=== PATIENT | female | born 1940 | race Two or more races ===

== ENCOUNTER 2017-03-21 21:54 | Emergency (ER) | payer OTHER ==
[~2017-03-21] VITALS: Ht 149.9 cm; Wt 50.1 kg
[2017-03-21 21:56] VITALS: BP 154/83
--- NOTE | 2017-03-21 22:06 | NUR ---
PT TAKEN TO BED 2.
--- NOTE | 2017-03-21 22:07 | NUR ---
Patient being evaluated by Dr. Huff at bedside.
[2017-03-21] MEDS ORDERED: LIDOCAINE 1% ***ER ONLY *** 10 MG/ML VIAL INJ ONE (22:10)
[2017-03-21] MEDS ORDERED: LIDOCAINE 1% ***ER ONLY *** 50 ML ONE (22:19)
--- NOTE | 2017-03-21 22:22 | NUR ---
77/F BIB FAMILY C/O LACERATION TO RT FOREHEAD. PMH ALZHEIMERS, DEMENTIA, THRYROID DZ. PT STATES SHE WAS WALKING TO BED WITH A ICECREAM IN HER HAND WITH OUT ANY SUPPORT AND TRIPPED OVER A RUG AND HIT HER HEAD ON THE WALL. PT DENIES LOC, N/V/D, FEVER, OR PAIN AT THIS TIME. PT HAS 3CM LACERATION TO RT SIDE OF FOREHEAD ABOVE EYEBROW. NO ACTIVE BLEEDING NOTED AT THIS TIME. PT IS AA&O X4 AND ACTING APPROPRIATE FOR AGE. PER DAUGHTER PT IS ACTING NORMAL FOR HER BASELINE FUNCTION. PT IS IN BED WITH FAMILY AT BEDSIDE, ER MD NOTIFIED OF PT STATUS. VSS.
--- NOTE | 2017-03-21 22:34 | NUR ---
pt returned to ed bed from ct.
--- NOTE | 2017-03-21 22:56 | NUR ---
DR YEH AT BEDSIDE FOR BEDSIDE PROCEDURE
[2017-03-21 23:28] VITALS: BP 154/83
--- NOTE | 2017-03-21 23:29 | NUR ---
Patient discharged with v/s stable. Written and verbal after care instructions given and explained. Patient verbalized understanding. Ambulatory with ASSISTANCE BY FAMILY. All questions addressed prior to discharge. Advised to follow up with PMD.
== END 2017-03-21 23:29 | disposition home or self-care (01) ==
LOC: MED 21:54
DX: S01.81XA Laceration without foreign body of other part of head, initial encounter (principal); F03.90 Unspecified dementia, unspecified severity, without behavioral disturbance, psychotic disturbance, mood disturbance, and anxiety; I10 Essential (primary) hypertension; W01.0XXA Fall on same level from slipping, tripping and stumbling without subsequent striking against object, initial encounter; Y93.89 Activity, other specified; Y92.89 Other specified places as the place of occurrence of the external cause; Y99.8 Other external cause status
CPT/HCPCS: 12013; 70450; 99284; J2001